=== PATIENT | male | born 1995 | race Caucasian/White ===

== ENCOUNTER 2023-08-08 04:14 | Day surgery (SDC) | payer OTHER ==
[2023-08-05 14:12] VITALS: BMI 27.1
[2023-08-08] MEDS ORDERED: DEXTROSE 5%-0.45% SALINE 1,000 ML IV SCH (14:45)
[2023-08-08] MEDS ORDERED: IBUPROFEN 800 MG/8 ML IJ IVPB SCH (14:45)
[2023-08-08] MEDS ORDERED: LIDOCAINE HCL 1%, 10 MG/ML (20ML VIAL) ONE (15:06)
[2023-08-08] MEDS ORDERED: MIDAZOLAM HCL 2 MG/2 ML SINGLE DOSE VIAL ONE (15:07)
[2023-08-08] MEDS: LIDOCAINE HCL 1%, 10 MG/ML (20ML VIAL) NR ONE ×3 (15:08→15:23)
[2023-08-08] MEDS: ceFAZolin SODIUM 1 GM VIAL IVPB ONE ×2 (15:08→15:18)
[2023-08-08] MEDS ORDERED: PROPOFOL 40 ML ONE (15:08)
[2023-08-08] MEDS: KETOROLAC TROMETHAMINE 30 MG/1 ML VIAL IVPUSH ONE ×2 (16:05→16:10)
[2023-08-08] MEDS ORDERED: ONDANSETRON 4 MG/2 ML VIAL IVPUSH PRN (16:05)
[2023-08-08] MEDS ORDERED: ACETAMINOPHEN INJECTION 100 ML IVPB ONE (16:06)
[2023-08-08] MEDS ORDERED: KETOROLAC TROMETHAMINE 30 MG/1 ML VIAL ONE (16:06)
[2023-08-08] MEDS: ACETAMINOPHEN 1000 MG/100 ML BAG IVPB ONE ×3 (16:08→17:51)
[2023-08-08] MEDS ORDERED: LACTATED RINGERS SOLUTION 1,000 ML IV SCH (16:15)
[2023-08-08 17:36] VITALS: RESP 18
[2023-08-08 19:07] VITALS: BP 130/71; PULSE 83; TEMP 98.8
== END 2023-08-08 19:00 | disposition home or self-care (01) ==
LOC: JASU-SURG 04:14
PROVIDERS: ATTEND Urology
PROC: 0VB Male Reproductive System, Excision (ICD-10-PCS; principal; 2023-08-08 14:00)
DX: N46.01 Organic azoospermia (principal)
CPT/HCPCS: 88307-TC; 94760; J0131